=== PATIENT | female | born 1950 | race African-American/Black ===

== ENCOUNTER 2017-04-19 18:21 | Emergency (ER) | payer OTHER, MEDICAID ==
[~2017-04-19] VITALS: Ht 157.5 cm; Wt 77.8 kg
[~2017-04-19 18:21] MED LIST: ALLO100T PO; ATOR-2 PO; EZET10TA PO; FOSI40TA2 PO; GABA-529 PO; LORA10TA7 PO; METH500T PO; MOBI7 PO; OMEP20CA10 PO; SITA1TAB4 PO; TRIA1TAB94 PO
[2017-04-19] MEDS ORDERED: TETRACAINE 0.5% OPHTH DROPS 4ML OP ONE (19:00)
[2017-04-19] MEDS ORDERED: FLUORESCEIN SODIUM 1MG/STRIP OP ONE (19:00)
[2017-04-19 21:15] VITALS: BP 145/71
== END 2017-04-19 21:15 | disposition home or self-care (01) ==
LOC: ER 19:25
DX: H11.32 Conjunctival hemorrhage, left eye (principal); E11.9 Type 2 diabetes mellitus without complications; I10 Essential (primary) hypertension; F03.90 Unspecified dementia, unspecified severity, without behavioral disturbance, psychotic disturbance, mood disturbance, and anxiety; H53.8 Other visual disturbances; Z88.5 Allergy status to narcotic agent; Z90.49 Acquired absence of other specified parts of digestive tract
CPT/HCPCS: 99283

== ENCOUNTER 2017-12-12 13:20 | Emergency (ER) | payer OTHER, MEDICAID ==
[~2017-12-12] VITALS: Ht 157.5 cm; Wt 73.0 kg
[~2017-12-12 13:20] MED LIST changes: -EZET10TA PO; +ZET10 PO
[2017-12-12 14:48] VITALS: BP 131/64
[2017-12-12] MEDS ORDERED: ACETAMINOPHEN 500MG TABLET PO ONE (19:45)
== END 2017-12-12 20:14 | disposition home or self-care (01) ==
LOC: ER 14:13
DX: M54.40 Lumbago with sciatica, unspecified side (principal); S39.012A Strain of muscle, fascia and tendon of lower back, initial encounter; X58.XXXA Exposure to other specified factors, initial encounter; Y93.9 Activity, unspecified; Y92.9 Unspecified place or not applicable; E11.9 Type 2 diabetes mellitus without complications; M51.36 Other intervertebral disc degeneration, lumbar region; I10 Essential (primary) hypertension; Z88.5 Allergy status to narcotic agent
CPT/HCPCS: 72100; 99284